=== PATIENT | female | born 1950 | race Caucasian/White ===

== ENCOUNTER 2017-08-08 11:08 | Observation (INO) | payer OTHER, MEDICARE ==
[2017-08-08] MEDS ORDERED: SODIUM CHLORIDE 0.9% 1000 ML INFUS.BAG IV ONE ×2 (11:20→14:07)
--- NOTE | 2017-08-08 12:08 | PDOC ---
History of Present Illness - General Chief Complaint: Injury Stated Complaint: FALL,WEAKNESS,CHEMO PT Time Seen by Provider: 08/08/17 11:17 - History of Present Illness Initial Comments: 08/08/17 14:08 67 years old past medical history significant for multiple myeloma, hyponatermia , TIA, on plavix, currently undergoing treatments chemotherapy her oncologist at [facility] her primary care providers in [facility]. Her last chemotherapy was Monday. Since then she has had profuse nausea several episodes of vomiting and profuse watery diarrhea. She has began to feel weak lethargic with decreased appetite and secondary to this has had multiple falls over the last 2 days. She denies any head trauma she has loss of consciousness wall is usually occur after standing up once while brushing teeth and going to the bathroom. She is injured her ankle and her shoulder during these falls She has been able to ambulate but feels very lightheaded. Symptoms are intermittent worse with change of position but overall her nausea generalized weakness and loss of appetite is persistent constant 08/08/17 14:11 Past History - Past Medical History Allergies/Adverse Reactions: Allergies Allergy/AdvReac Type Severity Reaction Status Date / Time No Known Allergies Allergy Verified 08/08/17 11:10 Home Medications: Ambulatory Orders Clopidogrel Bisulfate [Plavix -] 75 mg PO DAILY 08/16/13 Amlodipine Besylate 10 mg PO DAILY 08/08/17 Escitalopram Oxalate [Lexapro -] 10 mg PO DAILY 08/08/17 Metoprolol Succinate 100 mg PO DAILY 08/08/17 Velcade 1 dose IV ASDIR 08/08/17 CVA: Yes (tia) COPD: No Disorders: Yes HTN: Yes Other medical history: MULTIPLE MYELOMA, CHILDHOOD TB - Surgical History Appendectomy: Yes - Suicide/Smoking/Psychosocial Hx Smoking History: Never smoked Have you smoked in the past 12 months: No Information on smoking cessation initiated: No Hx Alcohol Use: No Drug/Substance Use Hx: No Substance Use Type: None Review of Systems - Review of Systems Comments:: 08/08/17 14:08 ROS: A complete review of 10 out of 10 review of systems is taken and is negative apart from what is previously mentioned below and in the HPI. *Physical Exam - Vital Signs Last Vital Signs Temp Pulse Resp BP Pulse Ox 97.6 F 67 20 135/81 99 08/08/17 11:09 08/08/17 11:09 08/08/17 11:09 08/08/17 11:09 08/08/17 11:09 - Physical Exam Comments: 08/08/17 14:09 Vitals: Triage Vital signs reviewed General Appearance: no acute distress, well nourished well developed, Head: Atraumatic, Eyes: Pupils equal reactive round, extraocular movement intact Throat: Posterior oropharynx without erythema, mucous membranes dry, Neck: Supple;No Nucal rigidity Chest Wall: Nontender Cardiac: Regular rate and rhythym, no murmurs, no rubs, no gallops, Lungs: Clear to auscultation bilateral, good air movement bilaterally, Abdomen: Soft, non distended, normal bowel sounds, non tender to palpation Extremities: Full range of motion to all extremities, no cyanosis, clubbing, or edema Skin: Warm and dry,swelling to lateral left ankle Neuro: AOX3; Cranial Nerves 2-12 grossly intact, Strength intact to all extremities, Sensation intact to all extremities,nl finger to nose Psych: normal mood, normal affect Heart Score/ECG Review - ECG Impressions Comment:: 08/08/17 16:[address] elevations no [facility]I ED Treatment Course - LABORATORY CBC & Chemistry Diagram: 08/08/17 12:04 08/08/17 12:04 - RADIOLOGY Radiology Studies Ordered: Category Date Time Status CXRPORT [CHEST X-RAY PORTABLE*] [RAD] Stat Radiology 08/08/17 11:20 Taken Medical Decision Making - Medical Decision Making 08/08/17 14:12 67 years old past medical history significant for multiple myeloma currently undergoing treatment, hyponatremia, TIAs presents to the ED with nausea vomiting profuse diarrhea after chemotherapy with multiple episodes of lightheadedness with change in position and fall secondary to lightheadedness Mild injury to shoulder left hip ankle We'll hydrate obtain labs EKG check head CT x-ray ankle hip shoulder chest x- ray likely observation overnight for hydration. Reevaluation: Patient still with decreased appetite mildly lightheaded will observe overnight for continued hydration. *DC/Admit/Observation/Transfer Diagnosis at time of Disposition: Dehydration, Light-headed Falls Qualifiers: Encounter type: initial encounter Qualified Code(s): W19.XXXA - Unspecified fall, initial encounter - Discharge Dispostion Condition at time of disposition: Stable Admit: Yes - Referrals - Patient Instructions - Post Discharge Activity
[2017-08-08 13:03] LABS: ANION GAP 9 (8-16); BLOOD UREA NITROGEN 35 mg/dl (7-18); CALCIUM 8.4 mg/dl (8.4-10.2); CHLORIDE 97 mmol/L (98-107); CO2 22 mmol/L (22-28); GLUCOSE,RANDOM 100 mg/dl (74-106); POTASSIUM 3.6 mmol/L (3.5-5.1); SODIUM 128 mmol/L (136-145)
[2017-08-08 13:42] LABS: HEMOGLOBIN 10.5 GM/dL (10.7-15.3); MCH 28.9 pg (25.7-33.7); MEAN PLT VOLUME 10.2 fl (7.5-11.1); PLATELET COUNT 70 K/MM3 (134-434); RBC 3.65 M/mm3 (3.60-5.2); RDW 14.6 % (11.6-15.6); WHITE BLOOD COUNT 4.4 K/mm3 (4.0-10.0)
[2017-08-08 13:52] LABS: URINE APPEARANCE Clear; URINE BILIRUBIN Negative (NEGATIVE); URINE GLUCOSE (UA) Trace (NEGATIVE); URINE KETONE Negative (NEGATIVE); URINE NITRITE Negative (NEGATIVE); URINE UROBILINOGEN 0.2 (0.2-1.0)
[2017-08-08 13:53] LABS: URINE BLOOD Trace-intact (NEGATIVE); URINE COLOR YELLOW; URINE LEUK ESTERASE TRACE (NEGATIVE); URINE PROTEIN 1+ (NEGATIVE)
[2017-08-08 14:29] LABS: EPI CELLS RARE /HPF; URINE BACTERIA RARE /hpf (NEGATIVE); URINE RBC 0-2 /hpf (0-3)
[2017-08-08 14:55] LABS: PLATELET ESTIMATE DECREASED
[2017-08-08] MEDS ORDERED: DEXTROSE 5%-NORMAL SALINE 1,000 ML IV SCH (15:00)
[2017-08-08 16:12] VITALS: BMI 25.9
--- NOTE | 2017-08-08 19:28 | HP ---
CHIEF COMPLAINT: Nausea, Diarrhea PCP: Not on staff HISTORY OF PRESENT ILLNESS: This is a 67 y/o woman with PMH of Multiple Myeloma, Hyponatermia, TIA(on plavix ), currently undergoing chemotherapy treatments, her oncologist is at [facility], her primary care providers are in [facility]. Her last chemotherapy was Monday. Who presents to the ED with profuse nausea, several episodes of vomiting and profuse watery diarrhea. Patient reports feeling weak, lethargic, with a decreased appetite. She also reports having multiple falls over the last 2 days- which she attributes to her weakness. Patient denies any head trauma. She reports LOC, after standing up, once while brushing her teeth, and while going to the bathroom. Patient reports injuring her left ankle and left shoulder secondary to the falls. ER course was notable for: (1) Na 128 (2) Cr 3.0 (3) Head CT- neg ICH, mass or lesion (4) R-shoulder- slightly widened joint space, no gross fx (5) Hips/Pelvis- neg fx (6) Left foot/ankle- no acute fx Recent Travel: None PAST MEDICAL HISTORY: See HPi PAST SURGICAL HISTORY: Social History: Smoking: Never Alcohol: None Drugs: None Family History: Allergies No Known Allergies Allergy (Verified 08/08/17 11:10) HOME MEDICATIONS: Home Medications Medication Instructions Recorded Clopidogrel Bisulfate [Plavix -] 75 mg PO DAILY 08/16/13 Amlodipine Besylate 10 mg PO DAILY 08/08/17 Escitalopram Oxalate [Lexapro -] 10 mg PO DAILY 08/08/17 Metoprolol Succinate 100 mg PO DAILY 08/08/17 Velcade 1 dose IV ASDIR 08/08/17 REVIEW OF SYSTEMS CONSTITUTIONAL: generalized weakness, malaise Absent: fever, chills, diaphoresis, loss of appetite, weight change HEENT: Absent: rhinorrhea, nasal congestion, throat pain, throat swelling, difficulty swallowing, mouth swelling, ear pain, eye pain, visual changes CARDIOVASCULAR: Absent: chest pain, syncope, palpitations, irregular heart rate, lightheadedness , peripheral edema RESPIRATORY: Absent: cough, shortness of breath, dyspnea with exertion, orthopnea, wheezing, stridor, hemoptysis GASTROINTESTINAL:nausea, diarrhea, Absent: abdominal pain, abdominal distension, vomiting, constipation, melena, hematochezia GENITOURINARY: Absent: dysuria, frequency, urgency, hesitancy, hematuria, flank pain, genital pain MUSCULOSKELETAL: arthralgia, joint swelling, Absent: myalgia, back pain, neck pain SKIN: Absent: rash, itching, pallor HEMATOLOGIC/IMMUNOLOGIC: Absent: easy bleeding, easy bruising, lymphadenopathy, frequent infections ENDOCRINE: Absent: unexplained weight gain, unexplained weight loss, heat intolerance, cold intolerance NEUROLOGIC: Absent: headache, focal weakness or paresthesias, dizziness, unsteady gait, seizure, mental status changes, bladder or bowel incontinence PSYCHIATRIC: Absent: anxiety, depression, suicidal or homicidal ideation, hallucinations. PHYSICAL EXAMINATION Vital Signs - 24 hr 08/08/17 08/08/17 08/08/17 11:09 14:50 15:22 Temperature 97.6 F 98.6 F 98 F Pulse Rate 67 Pulse Rate [ 77 Right Radial] Respiratory 20 20 Rate Blood Pressure 135/81 Blood Pressure 142/77 [Left Arm] O2 Sat by Pulse 99 98 Oximetry (%) 08/08/17 08/08/17 15:52 16:05 Temperature 97.6 F 97.6 F Pulse Rate 74 72 Pulse Rate [ Right Radial] Respiratory 18 18 Rate Blood Pressure 142/77 Blood Pressure [Left Arm] O2 Sat by Pulse Oximetry (%) GENERAL: Awake, alert, and fully oriented, in no acute distress. HEAD: Normal with no signs of trauma. EYES: Pupils equal, round and reactive to light, extraocular movements intact, sclera anicteric, conjunctiva clear. No lid lag. EARS, NOSE, THROAT: Ears normal, nares patent, oropharynx clear without exudates. Dry mucous membranes. NECK: Normal range of motion, supple without lymphadenopathy, JVD, or masses. LUNGS: Breath sounds equal, clear to auscultation bilaterally. No wheezes, and no crackles. No accessory muscle use. HEART: Regular rate and rhythm, normal S1 and S2 without murmur, rub or gallop. ABDOMEN: Soft, nontender, not distended, normoactive bowel sounds, no guarding, no rebound, no masses. No hepatomegaly or splenomegaly. MUSCULOSKELETAL: Normal range of motion at all joints. No bony deformities. No CVA tenderness.+ left ankle medial/lateral tenderness. UPPER EXTREMITIES: 2+ pulses, warm, well-perfused. No cyanosis. No clubbing. No peripheral edema. LOWER EXTREMITIES: 2+ pulses, warm, well-perfused. No calf tenderness. trace r- ankle, +1 l- foot peripheral edema. NEUROLOGICAL: Cranial nerves II-XII intact. Normal speech. gait not observed. PSYCHIATRIC: Cooperative. Good eye contact. Appropriate mood and affect. SKIN: Warm, dry, normal turgor, no rashes or lesions noted, normal capillary refill. Laboratory Results - last 24 hr 08/08/17 08/08/17 08/08/17 12:04 12:04 12:04 WBC 4.4 RBC 3.65 Hgb 10.5 L Hct 31.0 L MCV 85.0 MCH 28.9 MCHC 34.0 RDW 14.6 Plt Count 70 L MPV 10.2 Neutrophils % No Result Required. Neutrophils % (Manual) 75.5 Band Neutrophils % 2.0 Lymphocytes % No Result Required. Lymphocytes % (Manual) 4.1 L Monocytes % (Manual) 16 H* Eosinophils % (Manual) 2.1 Basophils % (Manual) 0.0 Myelocytes % (Man) 0 Promyelocytes % (Man) 0 Blast Cells % (Manual) 0 Nucleated RBC % 0 Metamyelocytes 0 Platelet Estimate Decreased Sodium 128 L Potassium 3.6 Chloride 97 L Carbon Dioxide 22 Anion Gap 9 BUN 35 H Creatinine 3.0 H Random Glucose 100 Lactic Acid Calcium 8.4 Troponin I < 0.03 Urine Color Urine Appearance Urine pH Ur Specific [place] Urine Protein Urine Glucose (UA) Urine Ketones Urine Blood Urine Nitrite Urine Bilirubin Urine Urobilinogen Ur Leukocyte Esterase Urine RBC Urine WBC Ur Epithelial Cells Urine Bacteria Blood Type Antibody Screen 08/08/17 08/08/17 08/08/17 12:04 12:04 12:10 WBC RBC Hgb Hct MCV MCH MCHC RDW Plt Count MPV Neutrophils % Neutrophils % (Manual) Band Neutrophils % Lymphocytes % Lymphocytes % (Manual) Monocytes % (Manual) Eosinophils % (Manual) Basophils % (Manual) Myelocytes % (Man) Promyelocytes % (Man) Blast Cells % (Manual) Nucleated RBC % Metamyelocytes Platelet Estimate Sodium Potassium Chloride Carbon Dioxide Anion Gap BUN Creatinine Random Glucose Lactic Acid 0.8 Calcium Troponin I Urine Color Urine Appearance Urine pH Ur Specific [place] Urine Protein Urine Glucose (UA) Urine Ketones Urine Blood Urine Nitrite Urine Bilirubin Urine Urobilinogen Ur Leukocyte Esterase Urine RBC Urine WBC Ur Epithelial Cells Urine Bacteria Blood Type O POSITIVE O POSITIVE Antibody Screen Negative 08/08/17 13:23 WBC RBC Hgb Hct MCV MCH MCHC RDW Plt Count MPV Neutrophils % Neutrophils % (Manual) Band Neutrophils % Lymphocytes % Lymphocytes % (Manual) Monocytes % (Manual) Eosinophils % (Manual) Basophils % (Manual) Myelocytes % (Man) Promyelocytes % (Man) Blast Cells % (Manual) Nucleated RBC % Metamyelocytes Platelet Estimate Sodium Potassium Chloride Carbon Dioxide Anion Gap BUN Creatinine Random Glucose Lactic Acid Calcium Troponin I Urine Color Yellow Urine Appearance Clear Urine pH 6.0 Ur Specific [place] 1.010 Urine Protein 1+ H Urine Glucose (UA) Trace Urine Ketones Negative Urine Blood Trace-intact H Urine Nitrite Negative Urine Bilirubin Negative Urine Urobilinogen 0.2 Ur Leukocyte Esterase Trace H Urine RBC 0-2 Urine WBC 1-3 Ur Epithelial Cells Rare Urine Bacteria Rare Blood Type Antibody Screen ASSESSMENT/PLAN: 67 y/o woman PMH: Multiple Myeloma (on Chemo). Placed on Observation for Dehydration. Plan: 1. Dehydration - Likely secondary s/p chemo - Continue IVF - monitor BMP - Orthostatics - Fall precautions 2. L- Foot/Ankle Pain - s/p fall - Xray- no fx, no dislocation - elevate - Tylenol prn 3. Multiple Myeloma - s/p Chemo - FU with Oncology 4. FEN - NS fluids - Replete lytes - NPO 5. DVT ppx - SCDs - Consider ACs if LOS > 48hrs Code Status: Full Code Dispo: Observation Problem List - Problem (1) Dehydration Code(s): E86.0 - DEHYDRATION (2) Light-headed Code(s): R42 - DIZZINESS AND GIDDINESS (3) Multiple myeloma Code(s): C90.00 - MULTIPLE MYELOMA NOT HAVING ACHIEVED REMISSION Visit type - Emergency Visit Emergency Visit: Yes ED Registration Date: 08/08/17 Care time: The patient presented to the Emergency Department on the above date and was hospitalized for further evaluation of their emergent condition. - New Patient This patient is new to me today: Yes Date on this admission: 08/09/17 - Critical Care Critical Care patient: No Hospitalist Screening - Colonoscopy Questionnaire Colonoscopy Questionnaire: Colonoscopy Questionnaire - Patient: 50 - 75 years old and never had a screening colonoscopy: No History of colon or rectal polyps, or CA: No History of IBD, Crohn's disease or UC: No History of abdominal radiation therapy as a child: No - Relative: 1 with colon or rectal CA, or polyps at age 60 or younger: No Colon or rectal CA diagnosed at age 45 or younger: No Multiple relatives with colon or rectal CA: No - Outcome: Screening Result: Negative Screen
[2017-08-09 08:22] LABS: ANION GAP 7 (8-16); BLOOD UREA NITROGEN 27 mg/dl (7-18); CHLORIDE 103 mmol/L (98-107); CO2 21 mmol/L (22-28); CREATININE 2.7 mg/dl (0.6-1.3); GLUCOSE,RANDOM 104 mg/dl (74-106); MAGNESIUM 1.5 mg/dL (1.8-2.4); PHOSPHOROUS 3.4 mg/dl (2.5-4.6); POTASSIUM 3.1 mmol/L (3.5-5.1); SODIUM 131 mmol/L (136-145)
[2017-08-09 09:22] LABS: BASO % 0.3 % (0-2.0); EOS % 2.1 % (0-4.5); HEMATOCRIT 26.8 % (32.4-45.2); HEMOGLOBIN 9.2 GM/dL (10.7-15.3); LYMPH % 4.2 % (8-40); MCH 28.7 pg (25.7-33.7); MCHC 34.3 g/dl (32.0-36.0); MEAN CELL VOLUME 83.6 fl (80-96); MEAN PLT VOLUME 10.5 fl (7.5-11.1); MONO % 11.1 % (3.8-10.2); NEUT % 82.3 % (42.8-82.8); PLATELET COUNT 74 K/MM3 (134-434); RBC 3.21 M/mm3 (3.60-5.2); RDW 14.5 % (11.6-15.6); WHITE BLOOD COUNT 5.5 K/mm3 (4.0-10.0)
--- NOTE | 2017-08-09 09:25 | EKG ---
Test Reason : Blood Pressure : / mmHG Vent. Rate : 058 BPM Atrial Rate : 058 BPM P-R Int : 132 ms QRS Dur : 084 ms QT Int : 430 ms P-R-T Axes : 016 007 026 degrees QTc Int : 422 ms SINUS BRADYCARDIA OTHERWISE NORMAL ECG NO PREVIOUS ECGS AVAILABLE Confirmed by MIGUEL GIFFORD, EULA ([id number]) on 08/09/2017 9:25:24 AM Referred By: JAYME GARZA Confirmed By:EULA RIVERA MD
[2017-08-09] MEDS ORDERED: MAGNESIUM SULFATE 2 GM in SODIUM CHLORIDE 100 ML IVPB ONE (09:47)
--- NOTE | 2017-08-09 09:47 | PN ---
Physical Exam: SUBJECTIVE: Patient seen and examined OBJECTIVE: Vital Signs Period Temp Pulse Resp BP Sys/Jackson Pulse Ox Last 24 Hr 97.6 F-98.6 F 67-84 18-20 112-142/67-82 95-99 GENERAL: The patient is awake, alert, and fully oriented, in no acute distress. HEAD: Normal with no signs of trauma. EYES: PERRL, extraocular movements intact, sclera anicteric, conjunctiva clear. No ptosis. ENT: Ears normal, nares patent, oropharynx clear without exudates, moist mucous membranes. NECK: Trachea midline, full range of motion, supple. LUNGS: Breath sounds equal, clear to auscultation bilaterally, no wheezes, no crackles, no accessory muscle use. HEART: Regular rate and rhythm, S1, S2 without murmur, rub or gallop. ABDOMEN: Soft, nontender, nondistended, normoactive bowel sounds, no guarding, no rebound, no hepatosplenomegaly, no masses. EXTREMITIES: 2+ pulses, warm, well-perfused, no edema. NEUROLOGICAL: Cranial nerves II through XII grossly intact. Normal speech, gait not observed. PSYCH: Normal mood, normal affect. SKIN: Warm, dry, normal turgor, no rashes or lesions noted Laboratory Results - last 24 hr 08/08/17 08/08/17 08/08/17 12:04 12:04 12:04 WBC 4.4 RBC 3.65 Hgb 10.5 L Hct 31.0 L MCV 85.0 MCH 28.9 MCHC 34.0 RDW 14.6 Plt Count 70 L MPV 10.2 Neutrophils % No Result Required. Neutrophils % (Manual) 75.5 Band Neutrophils % 2.0 Lymphocytes % No Result Required. Lymphocytes % (Manual) 4.1 L Monocytes % Monocytes % (Manual) 16 H* Eosinophils % Eosinophils % (Manual) 2.1 Basophils % Basophils % (Manual) 0.0 Myelocytes % (Man) 0 Promyelocytes % (Man) 0 Blast Cells % (Manual) 0 Nucleated RBC % 0 Metamyelocytes 0 Platelet Estimate Decreased Sodium 128 L Potassium 3.6 Chloride 97 L Carbon Dioxide 22 Anion Gap 9 BUN 35 H Creatinine 3.0 H Random Glucose 100 Lactic Acid Calcium 8.4 Phosphorus Magnesium Troponin I < 0.03 Urine Color Urine Appearance Urine pH Ur Specific [place] Urine Protein Urine Glucose (UA) Urine Ketones Urine Blood Urine Nitrite Urine Bilirubin Urine Urobilinogen Ur Leukocyte Esterase Urine RBC Urine WBC Ur Epithelial Cells Urine Bacteria Blood Type Antibody Screen 08/08/17 08/08/17 08/08/17 12:04 12:04 12:10 WBC RBC Hgb Hct MCV MCH MCHC RDW Plt Count MPV Neutrophils % Neutrophils % (Manual) Band Neutrophils % Lymphocytes % Lymphocytes % (Manual) Monocytes % Monocytes % (Manual) Eosinophils % Eosinophils % (Manual) Basophils % Basophils % (Manual) Myelocytes % (Man) Promyelocytes % (Man) Blast Cells % (Manual) Nucleated RBC % Metamyelocytes Platelet Estimate Sodium Potassium Chloride Carbon Dioxide Anion Gap BUN Creatinine Random Glucose Lactic Acid 0.8 Calcium Phosphorus Magnesium Troponin I Urine Color Urine Appearance Urine pH Ur Specific [place] Urine Protein Urine Glucose (UA) Urine Ketones Urine Blood Urine Nitrite Urine Bilirubin Urine Urobilinogen Ur Leukocyte Esterase Urine RBC Urine WBC Ur Epithelial Cells Urine Bacteria Blood Type O POSITIVE O POSITIVE Antibody Screen Negative 08/08/17 08/09/17 08/09/17 13:23 07:40 07:40 WBC 5.5 RBC 3.21 L Hgb 9.2 L D Hct 26.8 L MCV 83.6 MCH 28.7 MCHC 34.3 RDW 14.5 Plt Count 74 L MPV 10.5 Neutrophils % 82.3 Neutrophils % (Manual) Band Neutrophils % Lymphocytes % 4.2 L Lymphocytes % (Manual) Monocytes % 11.1 H Monocytes % (Manual) Eosinophils % 2.1 Eosinophils % (Manual) Basophils % 0.3 Basophils % (Manual) Myelocytes % (Man) Promyelocytes % (Man) Blast Cells % (Manual) Nucleated RBC % Metamyelocytes Platelet Estimate Sodium 131 L Potassium 3.1 L Chloride 103 Carbon Dioxide 21 L Anion Gap 7 L BUN 27 H D Creatinine 2.7 H Random Glucose 104 Lactic Acid Calcium 8.0 L Phosphorus 3.4 Magnesium 1.5 L Troponin I Urine Color Yellow Urine Appearance Clear Urine pH 6.0 Ur Specific [place] 1.010 Urine Protein 1+ H Urine Glucose (UA) Trace Urine Ketones Negative Urine Blood Trace-intact H Urine Nitrite Negative Urine Bilirubin Negative Urine Urobilinogen 0.2 Ur Leukocyte Esterase Trace H Urine RBC 0-2 Urine WBC 1-3 Ur Epithelial Cells Rare Urine Bacteria Rare Blood Type Antibody Screen Active Medications Generic Name Dose Route Start Last Admin Trade Name Freq PRN Reason Stop Dose Admin Amlodipine Besylate 10 mg 08/09/17 10:00 Norvasc - PO DAILY NORMA Clopidogrel Bisulfate 75 mg 08/09/17 10:00 Plavix - PO DAILY NORMA Escitalopram Oxalate 10 mg 08/09/17 10:00 Lexapro - PO DAILY [facility] Dextrose/Sodium Chloride 1,000 mls @ 100 mls/hr 08/08/17 15:00 08/08/17 17:20 D5-Ns - IV 100 mls/hr ASDIR NORMA Administration Metoprolol Succinate 100 mg 08/09/17 10:00 Toprol Xl - PO DAILY [facility] ASSESSMENT/PLAN:
[2017-08-09] MEDS ORDERED: ESCITALOPRAM OXALATE 10 MG TABLET (FP) PO SCH (10:00)
[2017-08-09] MEDS ORDERED: D5-NS + 20 MEQ KCL - 20 MEQ/1,000 ML INFUS.BAG IV SCH (10:00)
[2017-08-09] MEDS ORDERED: CLOPIDOGREL BISULFATE 75 MG TABLET (FP) PO SCH (10:00)
[2017-08-09] MEDS ORDERED: POTASSIUM CHLORIDE TABS 20 MEQ TABLET.ER (FP) PO ONE (10:00)
[2017-08-09] MEDS ORDERED: HEPARIN NA (PORCINE) 5,000 UNITS/ML 1ML VIAL SQ SCH (10:00)
[2017-08-09] MEDS ORDERED: amLODIPine BESYLATE 10 MG TABLET (FP) PO SCH (10:00)
[2017-08-09] MEDS ORDERED: MAGNESIUM SULFATE IN WATER 2 GM/50 ML IVPB IVPB ONE (10:15)
[2017-08-09] MEDS: SODIUM BICARBONATE 2.4 MEQ/5 ML SDVIAL IV SCH ×2 (10:55→13:43)
[2017-08-09] MEDS: KCL 10 MEQ IVPB 10 MEQ/100 ML INFUS.BAG IVPB SCH ×2 (10:55→13:43)
--- NOTE | 2017-08-09 11:06 | DS ---
Physical Exam: SUBJECTIVE: Patient seen and examined, patient is a independently ambulatory at bedside with the assistance of a walker denies any chest pain or shortness of breath. OBJECTIVE: Patient is a 67 y/o woman with PMH of Multiple Myeloma, Hyponatermia , TIA(on plavix), currently undergoing chemotherapy treatments, her oncologist is at [facility], her primary care providers are in [facility]. Her last chemotherapy was Monday. Who presents to the ED with profuse nausea, several episodes of vomiting and profuse watery diarrhea. Patient reports feeling weak, lethargic, with a decreased appetite. She also reports having multiple falls over the last 2 days- which she attributes to her weakness. Patient denies any head trauma. She reports LOC, after standing up, once while brushing her teeth , and while going to the bathroom. Patient reports injuring her left ankle and left shoulder secondary to the falls. ER course was notable for: (1) Na 128 (2) Cr 3.0 (3) Head CT- neg ICH, mass or lesion (4) R-shoulder- slightly widened joint space, no gross fx (5) Hips/Pelvis- neg fx (6) Left foot/ankle- no acute fx Vital Signs Period Temp Pulse Resp BP Sys/Jackson Pulse Ox Last 24 Hr 97.6 F-98.6 F 67-84 18-20 112-142/67-82 95-99 PHYSICAL EXAM GENERAL: The patient is awake, alert, and fully oriented, in no acute distress. HEAD: Normal with no signs of trauma. EYES: PERRL, extraocular movements intact, sclera anicteric, conjunctiva clear. ENT: Ears normal, nares patent, oropharynx clear without exudates, moist mucous membranes. NECK: Trachea midline, full range of motion, supple. LUNGS: Breath sounds equal, clear to auscultation bilaterally, no wheezes, no crackles, no accessory muscle use. HEART: Regular rate and rhythm, S1, S2 without murmur, rub or gallop. ABDOMEN: Soft, nontender, nondistended, normoactive bowel sounds, no guarding, no rebound, no hepatosplenomegaly, no masses. EXTREMITIES: 2+ pulses, warm, well-perfused, trace edema to left lower extremity, minimal point tenderness to the lateral malleous. NEUROLOGICAL: Cranial nerves II through XII grossly intact. Normal speech, gait not observed. PSYCH: Normal mood, normal affect. SKIN: Warm, dry, normal turgor, no rashes or lesions noted. LABS Laboratory Results - last 24 hr 08/08/17 08/08/17 08/08/17 12:04 12:04 12:04 WBC 4.4 RBC 3.65 Hgb 10.5 L Hct 31.0 L MCV 85.0 MCH 28.9 MCHC 34.0 RDW 14.6 Plt Count 70 L MPV 10.2 Neutrophils % No Result Required. Neutrophils % (Manual) 75.5 Band Neutrophils % 2.0 Lymphocytes % No Result Required. Lymphocytes % (Manual) 4.1 L Monocytes % Monocytes % (Manual) 16 H* Eosinophils % Eosinophils % (Manual) 2.1 Basophils % Basophils % (Manual) 0.0 Myelocytes % (Man) 0 Promyelocytes % (Man) 0 Blast Cells % (Manual) 0 Nucleated RBC % 0 Metamyelocytes 0 Platelet Estimate Decreased Sodium 128 L Potassium 3.6 Chloride 97 L Carbon Dioxide 22 Anion Gap 9 BUN 35 H Creatinine 3.0 H Random Glucose 100 Lactic Acid Calcium 8.4 Phosphorus Magnesium Troponin I < 0.03 Urine Color Urine Appearance Urine pH Ur Specific [place] Urine Protein Urine Glucose (UA) Urine Ketones Urine Blood Urine Nitrite Urine Bilirubin Urine Urobilinogen Ur Leukocyte Esterase Urine RBC Urine WBC Ur Epithelial Cells Urine Bacteria Blood Type Antibody Screen 08/08/17 08/08/17 08/08/17 12:04 12:04 12:10 WBC RBC Hgb Hct MCV MCH MCHC RDW Plt Count MPV Neutrophils % Neutrophils % (Manual) Band Neutrophils % Lymphocytes % Lymphocytes % (Manual) Monocytes % Monocytes % (Manual) Eosinophils % Eosinophils % (Manual) Basophils % Basophils % (Manual) Myelocytes % (Man) Promyelocytes % (Man) Blast Cells % (Manual) Nucleated RBC % Metamyelocytes Platelet Estimate Sodium Potassium Chloride Carbon Dioxide Anion Gap BUN Creatinine Random Glucose Lactic Acid 0.8 Calcium Phosphorus Magnesium Troponin I Urine Color Urine Appearance Urine pH Ur Specific [place] Urine Protein Urine Glucose (UA) Urine Ketones Urine Blood Urine Nitrite Urine Bilirubin Urine Urobilinogen Ur Leukocyte Esterase Urine RBC Urine WBC Ur Epithelial Cells Urine Bacteria Blood Type O POSITIVE O POSITIVE Antibody Screen Negative 08/08/17 08/09/17 08/09/17 13:23 07:40 07:40 WBC 5.5 RBC 3.21 L Hgb 9.2 L D Hct 26.8 L MCV 83.6 MCH 28.7 MCHC 34.3 RDW 14.5 Plt Count 74 L MPV 10.5 Neutrophils % 82.3 Neutrophils % (Manual) Band Neutrophils % Lymphocytes % 4.2 L Lymphocytes % (Manual) Monocytes % 11.1 H Monocytes % (Manual) Eosinophils % 2.1 Eosinophils % (Manual) Basophils % 0.3 Basophils % (Manual) Myelocytes % (Man) Promyelocytes % (Man) Blast Cells % (Manual) Nucleated RBC % Metamyelocytes Platelet Estimate Sodium 131 L Potassium 3.1 L Chloride 103 Carbon Dioxide 21 L Anion Gap 7 L BUN 27 H D Creatinine 2.7 H Random Glucose 104 Lactic Acid Calcium 8.0 L Phosphorus 3.4 Magnesium 1.5 L Troponin I Urine Color Yellow Urine Appearance Clear Urine pH 6.0 Ur Specific [place] 1.010 Urine Protein 1+ H Urine Glucose (UA) Trace Urine Ketones Negative Urine Blood Trace-intact H Urine Nitrite Negative Urine Bilirubin Negative Urine Urobilinogen 0.2 Ur Leukocyte Esterase Trace H Urine RBC 0-2 Urine WBC 1-3 Ur Epithelial Cells Rare Urine Bacteria Rare Blood Type Antibody Screen IMAGING head ct: no acute pathology chest xray: no acute pathology left hip and pelvis xray: no fracture left ankle/foot: no acute fracture HOSPITAL COURSE: Patient was admitted from the emergency department for dehydrations secondary to chemotherapy. last dose of chemotherapy was 08/04/17. Patient was given Iv hydration with electrolyte repletion, potassium and magnesium, she is tolerating regular diet. Patient ambulated with physical therapy no services was recommended. patient does have a known medical history of chronic kidney disease secondary to multiple myeloma, repeat creatine was 2.7 , baseline 3.0 as per patient. patient does have a follow up appointment scheduled for 08/14/17 with private oncologist, Dr Den Tejeda at [facility]. PLAN - continue regular diet - continue all home medications - advised to keep follow up appointment that is scheduled for this August [address] Tejeda Date of Admission:08/08/17 Date of Discharge: 08/09/17 Minutes to complete discharge: 45 Discharge Summary Reason For Visit: DEHYDRATION/LIGHTHEADEDNESS/FALL Current Active Problems Dehydration (Acute) Falls (Acute) Light-headed (Acute) Multiple myeloma (Acute) Condition: Stable - Instructions - Home Medications Comprehensive Discharge Medication List: Ambulatory Orders Clopidogrel Bisulfate [Plavix -] 75 mg PO DAILY 08/16/13 Amlodipine Besylate 10 mg PO DAILY 08/08/17 Escitalopram Oxalate [Lexapro -] 10 mg PO DAILY 08/08/17 Metoprolol Succinate 100 mg PO DAILY 08/08/17 Velcade 1 dose IV ASDIR 08/08/17 This patient is new to me today: Yes Date on this admission: 08/09/17 Emergency Visit: Yes ED Registration Date: 08/08/17 Care time: The patient presented to the Emergency Department on the above date and was hospitalized for further evaluation of their emergent condition. Critical Care patient: No - Discharge Referral Referred to [facility] No
[2017-08-09 14:20] VITALS: BP 135/68; PULSE 73; TEMP 97.7
== END 2017-08-09 15:17 | disposition home or self-care (01) ==
LOC: FER 11:08 → FM/S 14:35
PROVIDERS: ADMIT Internal Medicine; ATTEND Nurse Practitioner Family
PROC: 3E033GC Introduction of Other Therapeutic Substance into Peripheral Vein, Percutaneous Approach (ICD-10-PCS; principal; 2017-08-08)
PROC: 3E0337Z Introduction of Electrolytic and Water Balance Substance into Peripheral Vein, Percutaneous Approach (ICD-10-PCS; 2017-08-08)
DX: E86.0 Dehydration (principal); C90.00 Multiple myeloma not having achieved remission; Z86.73 Personal history of transient ischemic attack (TIA), and cerebral infarction without residual deficits; Z79.01 Long term (current) use of anticoagulants; Z92.21 Personal history of antineoplastic chemotherapy; I10 Essential (primary) hypertension; Z86.11 Personal history of tuberculosis; S49.92XA Unspecified injury of left shoulder and upper arm, initial encounter; S79.912A Unspecified injury of left hip, initial encounter; W18.39XA Other fall on same level, initial encounter; Z91.81 History of falling; Y93.89 Activity, other specified; Y92.89 Other specified places as the place of occurrence of the external cause
CPT/HCPCS: 36415; 70450-TC; 71045-TC-FY; 73030-TC-RT-FY; 73523-TC-FY; 73610-TC-LT-FY; 73630-TC-LT; 80048; 81003; 81015; 83605; 83735; 84100; 84484; 85025; 86850; 86900; 86901; 87086; 93005; 96365; 96375; 97116-GP; 97161-GP; 99285-25; G0378; J7030